=== PATIENT | female | born 1995 | race Caucasian/White ===

== ENCOUNTER 2016-05-16 20:44 | Emergency (ER) | payer OTHER ==
[~2016-05-16] VITALS: Ht 160 cm; Wt 70.8 kg
[2016-05-16 20:51] VITALS: BP 121/85; PULSE 78; TEMP 36.9; O2SAT 99; Ht 160 cm; Wt 70.8 kg
[2016-05-16] MEDS ORDERED: NITROFURANTOIN MONOHYDRATE 100 MG CAP PO ONE (21:00)
[2016-05-16] MEDS ORDERED: NITR-5 PO (21:05)
--- NOTE | 2016-05-16 21:06 | EMERGENCY ROOM VISIT NOTE ---
History Report prepared by Estuardo: Pietro Cuadra Under the Supervision of: Dr. Davion Shea D.O. First contact with patient: 20:56 Chief Complaint: HEMATURIA Stated Complaint: BLOOD IN URINE History of Present Illness The patient is a 20 year old female who presents to the Emergency Room with complaints of episodes of hematuria beginning 5 days ago. She notes having blood in her urine 5 days ago and again today. She notes having burning during urination and is urinating more frequently, but denies any nausea, vomiting, or back pain. The patient reports having a history of UTI and notes the symptoms are similar expect for the blood in her urine which is new. Source of History: patient Onset: 5 days ago Position: other (bladder) Quality: other (hematuria) Timing: other (episodes) Associated Symptoms: + urinary symptoms (increased urinary frequency and burning with urination), No back pain, No nausea, No vomiting Review of Systems See HPI for pertinent positives & negatives. A total of 10 systems reviewed and were otherwise negative. Past Medical & Surgical Medical Problems: (1) History of UTI Family History No pertinent family history stated. Social History Smoking Status: Never Smoker Marital Status: in relationship Current/Historical Medications Scheduled Nitrofurantoin Monohyd Macrocr (Macrobid), 100 MG PO BID Allergies Coded Allergies: No Known Allergies (Unverified , 05/16/16) Physical Exam Vital Signs Date Time Temp Pulse Resp B/P Pulse Ox O2 Delivery O2 Flow Rate FiO2 05/16/16 20:51 36.9 78 16 121/85 99 Room Air Physical Exam CONSTITUTIONAL/VITAL SIGNS: Reviewed / noted above. GENERAL: Non-toxic in appearance. INTEGUMENTARY: Warm, dry, and [place]. HEAD: Normocephalic. EYES: without scleral icterus or trauma. ENT/OROPHARYNX: clear and moist. LYMPHADENOPATHY/NECK: Is supple without lymphadenopathy or meningismus. RESPIRATORY: Lungs clear and equal. CARDIOVASCULAR: Regular rate and rhythm. GI/ABDOMEN: Soft and nontender. No organomegaly or pulsatile mass. No rebound or guarding. Normal bowel sounds. EXTREMITIES: Warm and well perfused. BACK: No CVA tenderness. NEUROLOGICAL: Intact without focal deficits. PSYCHIATRIC: normal affect. MUSCULOSKELETAL: Normally developed with good muscle tone. Medical Decision & Procedures Laboratory Results Test 05/16/16 20:57 Laboratory results as stated above per my review. Medications Administered Medications (Trade) Dose Ordered Sig/Gail Route Start Time Stop Time Status Last Admin Dose Admin Nitrofurantoin Macrocrystals (Macrobid Cap) 100 mg ONE ONCE PO 05/16/16 21:00 05/16/16 21:01 DC 05/16/16 21:16 100 MG ED Course 2054: Previous medical records were reviewed. The patient was evaluated in room C3. A complete history and physical examination was performed. 2099: Ordered Macrobid Cap 100 mg PO. 2104: On reevaluation, the patient is doing well. I discussed the results and findings with the patient. She verbalized agreement of the treatment plan. The patient was discharged home. Medical Decision Differential considered: UTI, pyelonephritis, kidney stones, appendicitis, ovarian torsion, ruptured ovarian cyst,ectopic , . This is a 20-year-old female who presents to the ED with a chief complaint of frequency, urgency and hematuria. The patient developed symptoms earlier today. She denies any fevers or flank pain. No nausea or vomiting. Urine dip is suggestive of UTI. There is no gross hematuria. She was started on Macrobid and discharged. Impression Primary Impression: UTI (urinary tract infection) Scribe Attestation The scribe's documentation has been prepared under my direction and personally reviewed by me in its entirety. I confirm that the note above accurately reflects all work, treatment, procedures, and medical decision making performed by me. Departure Information Dispostion Home / Self-Care Prescriptions Nitrofurantoin Monohyd Macrocr (Macrobid) 100 Mg Cap 100 MG PO BID, #14 CAP Prov: Davion Shea D.O. 05/16/16 Referrals No Doctor, Assigned (PCP) Patient Instructions My [facility], UTI Additional Instructions Macrobid as prescribed. Take Tylenol if needed for pain. Anticipate improvement of symptoms in 3 days. Return for fevers, vomiting or flank pain.
== END 2016-05-16 21:23 | disposition home or self-care (01) ==
LOC: C.EDB 20:46 → C.EDC 21:23
DX: N39.0 Urinary tract infection, site not specified (principal); Z87.440 Personal history of urinary (tract) infections